=== PATIENT | female | born 1975 | race Asian ===

== ENCOUNTER 2018-06-10 13:48 | Emergency (ER) | payer BC ==
[~2018-06-10] VITALS: Ht 149.9 cm; Wt 52.3 kg
[2018-06-10 13:50] VITALS: BP 119/79
[2018-06-10] MEDS ORDERED: MECLIZINE HCL 25 MG TABLET PO ONE (14:30)
[2018-06-10] MEDS ORDERED: IBUPROFEN 800 MG TABLET PO ONE (14:30)
== END 2018-06-10 14:55 | disposition home or self-care (01) ==
LOC: EMS 13:53
DX: H60.92 Unspecified otitis externa, left ear (principal); H72.92 Unspecified perforation of tympanic membrane, left ear